=== PATIENT | female | born 1950 | race Two or more races ===

== ENCOUNTER 2024-05-17 21:23 | Emergency (ER) | payer MEDICARE, OTHER ==
[~2024-05-17] VITALS: Ht 160 cm; Wt 61.1 kg
[2024-05-17 21:40] VITALS: BP 137/65; PULSE 77; RESP 16; O2SAT 96
[2024-05-17 22:08] LABS: Basophils # (auto) 0.1 10 ^3/uL (0-0.2); Eosinophils # (auto) 0.2 10 ^3/uL (0-0.8); Eosinophils % (auto) 1.6 % (0.0-7.0); Hematocrit 38.1 % (36.0-46.0); Lymphocytes # (auto) 1.8 10 ^3/uL (0.4-5.4); Lymphocytes % (auto) 14.2 % (10.0-50.0); Mean Corpuscular Hemoglobin 29.1 pg (28.0-32.0); Mean Corpuscular Hgb Conc. 34.1 g/dL (32.0-36.0); Mean Corpuscular Volume 85.4 fL (80.0-100.0); Monocytes # (auto) 0.6 10 ^3/uL (0-1.3); Neutrophils # (auto) 9.9 10 ^3/uL (1.6-8.6); Neutrophils % (auto) 78.2 % (37.0-80.0); Red Blood Cells 4.46 10^6/uL (4.0-5.20); Red Cell Distribution Width 12.9 % (11.8-14.3); White Blood Cell 12.7 10^3/uL (4.4-10.8)
[2024-05-17 22:27] LABS: Alanine Aminotransferase 20 U/L (7-40); Albumin 4.5 g/dL (3.2-4.8); Alkaline Phosphatase 77 U/L (46-116); Anion Gap 7 (5-15); Aspartate Aminotransferase 20 U/L (13-40); BUN/Creatinine Ratio 12.4 (10.0-20.0); Bilirubin, Total 0.3 mg/dL (0.2-1.0); Blood Urea Nitrogen 11 mg/dL (9-23); Calcium 9.9 mg/dL (8.7-10.4); Carbon Dioxide 23 mmol/L (20-30); Chloride 105 mmol/L (98-107); Glucose 120 mg/dL (74-106); Potassium 4.2 mmol/L (3.5-5.1); Sodium 135 mmol/L (136-145)
[2024-05-17 22:28] LABS: Urine Bacteria FEW /hpf (None Seen); Urine Blood TRACE /uL (Negative); Urine Clarity Clear (Clear); Urine Protein, UAD Negative (Negative); Urine Specific Gravity 1.004 (1.001-1.035); Urine Urobilinogen Normal (Negative); Urine WBC 1 /hpf (0 - 5)
[2024-05-17 22:30] LABS: Urine Color STRAW (Yellow)
[2024-05-17 22:37] LABS: INR 1.06 (0.9-1.15); Partial Thromboplastin Time 28.5 SEC (24.5-34.5); Prothrombin Time 11.2 sec (9.3-11.8)
[2024-05-17] MEDS ORDERED: LEVO500T91 PO (23:12)
[2024-05-17] MEDS ORDERED: METR-344 PO (23:12)
== END 2024-05-18 02:17 | disposition home or self-care (01) ==
LOC: ER 21:23
DX: N30.90 Cystitis, unspecified without hematuria (principal); K52.9 Noninfective gastroenteritis and colitis, unspecified; Z85.9 Personal history of malignant neoplasm, unspecified; Z88.8 Allergy status to other drugs, medicaments and biological substances; Z88.0 Allergy status to penicillin; Z88.2 Allergy status to sulfonamides; Z88.1 Allergy status to other antibiotic agents
CPT/HCPCS: 36415; 71045; 74176; 80053; 81001; 85025; 85610; 85730; 86850; 86900; 86901